=== PATIENT | male | born 1950 | race Caucasian/White ===

== ENCOUNTER → 2022-02-15 | Outpatient (CLI) | payer MEDICARE | LOC: M PLAIMG 10:31 | PROVIDERS: ATTEND Physician Assistant Medical | DX: I10 Essential (primary) hypertension (principal) ==

== ENCOUNTER → 2022-04-23 | Outpatient (CLI) | payer MEDICARE, SELFPAY ==
[~2022-04-23] MED LIST: AMLO1TAB25; BUSP5TA; COLA100C5 PO; LISI10TA24; METO1TAB32; XARE20TA
== END ==
LOC: M LABSMTC 10:43
PROVIDERS: ATTEND Anesthesiology
DX: Z01.818 Encounter for other preprocedural examination (principal)

== ENCOUNTER 2022-04-26 10:32 | Day surgery (SDC) | payer MEDICARE ==
[~2022-04-26] VITALS: Ht 180.3 cm; Wt 105.2 kg
[~2022-04-26 10:32] MED LIST changes: +NS 1,000 ML IV ONE
[2022-04-26] MEDS ORDERED: propofoL 200 MG/20 ML VIAL As Ordered ONE ×3 (11:59→12:42)
[2022-04-26] MEDS ORDERED: LIDOCAINE 2% 100MG/5ML SDV (FOR ANES.) As Ordered ONE (11:59)
[2022-04-26] MEDS ORDERED: METOPROLOL SUCC *XL* 25MG TAB (TopROL *XL*) PO ONE (13:30)
[2022-04-26 13:40] VITALS: BP 171/81
[2022-04-26 14:14] VITALS: BP 177/83
== END 2022-04-26 14:15 | disposition home or self-care (01) ==
LOC: M OPP 10:32
PROVIDERS: ATTEND Internal Medicine Gastroenterology
DX: Z12.11 Encounter for screening for malignant neoplasm of colon (principal); Z80.0 Family history of malignant neoplasm of digestive organs; D12.6 Benign neoplasm of colon, unspecified; K64.0 First degree hemorrhoids; Z79.01 Long term (current) use of anticoagulants; Z79.899 Other long term (current) drug therapy; I10 Essential (primary) hypertension; E78.5 Hyperlipidemia, unspecified; Z80.1 Family history of malignant neoplasm of trachea, bronchus and lung; Z80.3 Family history of malignant neoplasm of breast